=== PATIENT | male | born 1950 | race Caucasian/White ===

== ENCOUNTER 2018-04-27 15:30 | Inpatient (IN) | payer OTHER, MEDICARE ==
[~2018-04-27] VITALS: Ht 177.8 cm; Wt 152.7 kg
[2018-04-27 15:58] LABS: BASOPHILS ABSOLUTE AUTO 0.04 K/mm3 (0.00-0.23); BASOPHILS PERCENT AUTO 0 % (0-2); EOSINOPHILS ABSOLUTE AUTO 0.02 K/mm3 (0.00-0.68); EOSINOPHILS PERCENT AUTO 0 % (0-6); Hematocrit 37.2 % (37.0-53.0); IMMATURE GRAN ABSOLUTE AUTO 0.09 K/mm3 (0.00-0.10); IMMATURE GRAN PERCENT AUTO 1 % (0-1); LYMPHOCYTES PERCENT AUTO 2 % (21-46); MONOCYTES ABSOLUTE AUTO 1.01 K/mm3 (0.16-1.47); MONOCYTES PERCENT AUTO 5 % (4-13); Mean Corpuscular HGB 30.2 pg (26.0-34.0); Mean Corpuscular HGB Conc 32.3 g/dL (31.5-36.5); Mean Corpuscular Volume 94 fL (80-100); Mean Platelet Volume 10.1 fL (9.1-12.4); NEUTROPHILS ABSOLUTE AUTO 17.89 K/mm3 (1.96-9.15); NEUTROPHILS PERCENT AUTO 92 % (41-73); Platelet Count 190 K/mm3 (150-400); RDW Coefficient Variation 13.6 % (11.7-14.2); RDW Standard Deviation 46.8 fL (35.1-46.3); Red Blood Cell Count 3.98 M/mm3 (4.30-5.90); White Blood Cell Count 19.35 K/mm3 (4.00-11.30)
[2018-04-27 16:00] LABS: PCO2 Arterial 39.6 mmHg (35-45); PO2 Arterial 69.7 mmHg (80-100); pH Blood Arterial 7.49 (7.35-7.45)
[2018-04-27 16:17] LABS: Alanine Aminotransfer (ALT/SGP 54 U/L (12-78); Albumin, Blood 3.7 g/dL (3.4-5.0); Albumin/Globulin Ratio 0.9 (0.8-1.8); Alk Phos 151 U/L (50-136); Anion Gap 12 mmol/L (6-16); Aspartate Aminotrans (AST/SGOT 49 U/L (12-37); Blood Urea Nitrogen 19 mg/dL (8-24); Bun/Creatinine Ratio 18.4 (12.0-20.0); CO2, Blood 28 mmol/L (21-32); Chloride, Blood 96 mmol/L (98-108); Creatinine, Blood 1.03 mg/dL (0.60-1.20); Glomerular Filtration Rate >60 (60-); Glucose, Blood 166 mg/dL (70-99); Potassium, Blood 4.7 mmol/L (3.5-5.5); Sodium, Blood 136 mmol/L (136-145); Total Protein, Blood 7.7 g/dL (6.4-8.2)
[2018-04-27] MEDS ORDERED: ALBU90OI INH (17:08)
[2018-04-27] MEDS ORDERED: **INCOMPLETE MED REC (17:08)
[2018-04-27] MEDS ORDERED: Zyloprim300 MG PO (17:10)
[2018-04-27] MEDS ORDERED: AMLO10 PO (17:11)
[2018-04-27] MEDS ORDERED: BUPR150ER PO (17:12)
[2018-04-27] MEDS ORDERED: CHLORHEXIDINE TOP (17:14)
[2018-04-27] MEDS ORDERED: CHLO25B PO (17:14)
[2018-04-27] MEDS ORDERED: CHOL10002 PO (17:14)
[2018-04-27] MEDS ORDERED: Ferrous Sulfat325 M2 PO (17:17)
[2018-04-27] MEDS ORDERED: GENTEAL TEARS 015 ML BOTHEYES (17:17)
[2018-04-27] MEDS ORDERED: FURO20 PO (17:18)
[2018-04-27] MEDS ORDERED: Fish Oil 10001000 MG PO (17:18)
[2018-04-27] MEDS ORDERED: GABA800 PO (17:19)
[2018-04-27] MEDS ORDERED: GEMF600 PO (17:19)
[2018-04-27] MEDS ORDERED: Glucose4 GM PO (17:20)
[2018-04-27] MEDS ORDERED: Novolog Fl100 UNIT/1 SC (17:21)
[2018-04-27] MEDS ORDERED: Norco 10-325 T1 EACH PO (17:21)
[2018-04-27] MEDS ORDERED: INSULANPEN SC (17:22)
[2018-04-27] MEDS ORDERED: LIOT25 PO (17:23)
[2018-04-27] MEDS ORDERED: Prinivil10 MG PO (17:23)
[2018-04-27] MEDS ORDERED: Mobic15 MG PO (17:24)
[2018-04-27] MEDS ORDERED: MAGOXI400 PO (17:24)
[2018-04-27] MEDS ORDERED: Metformin HCl500 MG PO (17:24)
[2018-04-27] MEDS ORDERED: MIRT15 PO (17:25)
[2018-04-27] MEDS ORDERED: METO25ER PO (17:25)
[2018-04-27] MEDS ORDERED: Omeprazole20 M1 PO (17:26)
[2018-04-27] MEDS ORDERED: Hair, Skin & N1 EACH PO (17:26)
[2018-04-27] MEDS ORDERED: K-Dur 20 meq T20 MEQ PO (17:27)
[2018-04-27] MEDS ORDERED: TRAZ100 PO (17:28)
[2018-04-27] MEDS ORDERED: TAMS.4ER PO (17:28)
[2018-04-27] MEDS ORDERED: SELENIUM SULFI120 ML TOP (17:31)
--- NOTE | 2018-04-27 18:45 | NUR ---
pt awaiting admit bed. Review of symptoms and needs. pt denies headaches has been having more pain if feet and state he has more sores on his feet. pt having dyspnea at rest. pt mobily obese sleeps in a recliner with his biapa. sleeping more. He is on high dose insulin. states he has been having more frequent low blood sugars in the am. no nausea no constipation or loose stools. moderate appetiete. he has not fell recently but has had falls the past ryear that resulted in a fractured ankle that is chronicaly painfull. [facility].. pt has a sore on right ankle that looks like pressure sore for socks. he also has a sore on top or left foot and a sore on left vides rom his brace. he has dry skin and edema. needs podiatry care inspected feet. he has opotential sore on left second toe. advised he needs carful foot care from urban renewal manager. pt does not see anyother care providers. he was on telehealth phone checks and took himself off. He wighs himself frequenty. pt states his will not let him change his code status and he is miserable. [facility] and advised we will help hm and his with a plan of care. pt high risk for sudden episode and increased hospitalizations kps score 50%.
[2018-04-27 22:12] LABS: Adenovirus Not Detected (NOT DETECT); Bordetella pertussis Not Detected (NOT DETECT); Chlamydophila pneumoniae Not Detected (NOT DETECT); Coronavirus 229E Not Detected (NOT DETECT); Coronavirus HKU1 Not Detected (NOT DETECT); Coronavirus NL63 Not Detected (NOT DETECT); Coronavirus OC43 Not Detected (NOT DETECT); Human Metapneumovirus Not Detected (NOT DETECT); Human Rhinovirus/Enterovirus Detected (NOT DETECT); Influenza A Not Detected (NOT DETECT); Influenza A/2009-H1 Not Detected (NOT DETECT); Influenza A/H1 Not Detected (NOT DETECT); Influenza A/H3 Not Detected (NOT DETECT); Influenza B Not Detected (NOT DETECT); Mycoplasma pneumoniae Not Detected (NOT DETECT); Parainfluenza Virus 1 Not Detected (NOT DETECT); Parainfluenza Virus 2 Not Detected (NOT DETECT); Parainfluenza Virus 3 Not Detected (NOT DETECT); Parainfluenza Virus 4 Not Detected (NOT DETECT); Respiratory Syncytial Virus Not Detected (NOT DETECT)
[2018-04-28 01:01] LABS: Hematocrit 30.1 % (37.0-53.0); Hemoglobin 9.8 g/dL (13.5-17.5); Mean Corpuscular HGB 31.3 pg (26.0-34.0); Mean Corpuscular HGB Conc 32.6 g/dL (31.5-36.5); Mean Corpuscular Volume 96 fL (80-100); Mean Platelet Volume 10.4 fL (9.1-12.4); Platelet Count 157 K/mm3 (150-400); Red Blood Cell Count 3.13 M/mm3 (4.30-5.90); White Blood Cell Count 24.31 K/mm3 (4.00-11.30)
[2018-04-28 01:17] LABS: Calcium, Blood 7.6 mg/dL (8.5-10.1); Creatinine, Blood 1.5 mg/dL (0.60-1.20); Potassium, Blood 5.2 mmol/L (3.5-5.5)
--- NOTE | 2018-04-28 04:36 | NUR ---
SHIFT SUMMARY: PATIENT ARRIVED TO [facility] AT APPROX 1930 VIA GURNEY FROM ED. PATIENT ADMISSION COMPLETED, AND PATIENT ORIENTED TO ROOM, CALL LIGHT AND HOSPITAL POLICIES. PATEINT LEFT FOOT HX OF FOOT DROP AND PATIENT WEAK=IMPAIRED GAIT. PATIENT PALE AND DIAPHORETIC. IV FLUIDS INFUSING AND MEDICATIONS GIVEN. -NEGATIVE FOR FLU LACTIC >4, INVENTORY MANAGEMENT SPECIALIST KAREN NOTIFIED, ORDERS RECIEVED, ARLEY JONES IN TO SEE PATIENT -MRSA SAMPLE COLLECTED -BLOOD GLUCOSE STABLE -SYSTOLIC BLOOD PRESSURES RANGING FROM LOW 90'S TO 105 AFTER 5L TOTAL IVF -NO URINE NOTED ON BLADDER SCAN AND NO URINE RECIEVED WITH I&O CATH, LUNG SOUNDS REMAIN UNCHANGED FROM INITIAL ASSESSMENT BUT ABDOMEN BECOMING MORE FIRM
[2018-04-28 11:04] LABS: Vancomycin, Random 11.3 ug/mL
[2018-04-28 12:09] LABS: Source, Urine Clean Catch
[2018-04-28 12:22] LABS: Bilirubin, Urine Neg (Neg); Blood, Urine Neg (Neg); Glucose Qualitative, Urine 3+ (Neg); Ketones, Urine 1+ (Neg); Leukocyte Esterase, Urine 1+ (Neg); Nitrite, Urine Neg (Neg); Protein, Urine Neg (Neg); Specific Gravity, Urine 1.015 (1.003-1.022); Urobilinogen, Urine NORM (Normal)
[2018-04-28 12:28] LABS: Appearance, Urine Clear (Clear); Color, Urine Yellow (P-Yellow)
[2018-04-28 12:40] LABS: Red Blood Cells, Urine Not Seen /hpf (0-2); Squamous Epithelial Cells Not Seen /hpf (Few)
--- NOTE | 2018-04-28 13:03 | NUR ---
[address] Teran regarding blood sugar 409 at lunchtime. new orders were received.
[2018-04-28 14:06] LABS: Bacteria Not Seen /hpf
--- NOTE | 2018-04-28 19:13 | NUR ---
SUMMARY The pt has improved throughout the shift with his breathing. Lung sounds are no longer wheezy as they were in the bases this morning, and less diminshed. The pt is no longer dyspneic at rest, and is able to ambulate into the bathroom to void. He has been voiding throughout the shift. Heart rate has remained stable and blood pressure as well. He states that he still feels "lousy" but that his breathing is better than this morning.
[2018-04-29 04:59] LABS: Anion Gap 7 mmol/L (6-16); Blood Urea Nitrogen 37 mg/dL (8-24); Bun/Creatinine Ratio 33.6 (12.0-20.0); CO2, Blood 29 mmol/L (21-32); Calcium, Blood 8.4 mg/dL (8.5-10.1); Chloride, Blood 98 mmol/L (98-108); Glomerular Filtration Rate >60 (60-); Glucose, Blood 310 mg/dL (70-99); Potassium, Blood 4.7 mmol/L (3.5-5.5); Sodium, Blood 134 mmol/L (136-145)
--- NOTE | 2018-04-29 06:14 | NUR ---
SHIFT SUMMARY: PATIENT HAD X2 EPISODES OF CONFUSION UPON WAKING THIS SHIFT, EASILY REORIENTED. PATIENT URINATING WELL, VSS, NO OTHER CHANGES, CALL LIGHT WITHIN REACH, PATIENT SLEEPING IN RECLINER.
[2018-04-29 09:06] LABS: Hemoglobin 10.4 g/dL (13.5-17.5); Mean Corpuscular HGB 30.6 pg (26.0-34.0); Mean Corpuscular HGB Conc 31.5 g/dL (31.5-36.5); Mean Corpuscular Volume 97 fL (80-100); Mean Platelet Volume 10.9 fL (9.1-12.4); Platelet Count 162 K/mm3 (150-400); RDW Coefficient Variation 14.1 % (11.7-14.2); RDW Standard Deviation 50.4 fL (35.1-46.3); White Blood Cell Count 15.93 K/mm3 (4.00-11.30)
--- NOTE | 2018-04-29 11:40 | NUR ---
Spoke with Dr. Teran regarding the positive blood cultures. He will also put in orders. Telephone order received for ruthie.
--- NOTE | 2018-04-29 15:00 | NUR ---
Telephone report given to Drew Cooper RN, at this time. Anticipate transfer of pt to room 330 soon.
--- NOTE | 2018-04-29 15:39 | NUR ---
TO ROOM AT 1535
--- NOTE | 2018-04-29 18:48 | NUR ---
PT PLEASANT SINCE TRANSFER. DID MEDICATE FOR PAIN THIS FATIMAH. SWOLLEN SCROTAL AREA. STATES IS FROM [place]. DR CANNOT FIX AT THIS TIME PER PT. NO OTHER CONCERNS AT THIS TIME. BED IN LOW POSITION, ACLL LITE IN REACH, CALLS APPROP. SITTING IN CHAIR AT THIS TIME.
--- NOTE | 2018-04-29 21:04 | NUR ---
CALLED [facility] TO [facility] PATIENT'S HOME DOSE OF LANTUS AT 220 UNITS AT HS. [facility] IS AL[facility] THIS INFORMATION TO US.
--- NOTE | 2018-04-29 21:53 | NUR ---
LANTUS DOSE PT TAKES 220 UNITS OF LANTUS AT BEDTIME. DISCUSSED WITH CHARGE RB RJ PLATA RN. SHE CALLED [facility] AND VERIFIED DOSE WITH STAFF. MEDICATION REC FROM [facility] WAS SENT AND REVIEWED, WHICH SHOWED THAT PT TOOK 220 UNITS OF LANTUS. ALSO CALLED PHARMACY AND VERIFIED DOSE WITH CAROL CARREON RN. IZZY MATSON CALLED AND NOTIFIED OF PT BG OF 223, AND HIGH DOSE OF INSULIN AT 220. HE STATES TO CONTINUE 220 UNITS DOSE AT BEDTIME, SINCE PT TAKES THAT AT HOME. SPOKE WITH PT REGARDING DOSE HE VERIFIED THAT IT WAS THE CORRECT DOSE, AND THAT HE HAS TAKEN THAT WAY FOR YEARS. HE SAYS HE TAKES IT EVEN WITH A BG OF 223. WILL MONITOR. PT TO HAVE A SANDWHICH BEFORE BED.
--- NOTE | 2018-04-30 05:13 | NUR ---
SHIFT SUMMARY NO ACUTE CHANGES TO REPORT OVERNIGHT. PT WAS AWAKE FOR GOOD PORTION OF THE SHIFT, UP AND DOWN FROM HIS RECLINER TO USE THE BATHROOM. PT AMBULATES WELL WITH FWW. O2 IN PLACE T/O THE NIGHT. EDEMA TO BLE +2. PT MEDICATED X1 FOR BACK PAIN WHICH HE STATES PROVIDES RELIEF. ASSESSMENT UNCHANGED. WILL CONTINUE TO MONITOR AND REPORT TO ONCOMING RN.
[2018-04-30 05:37] LABS: Anion Gap 9 mmol/L (6-16); Blood Urea Nitrogen 32 mg/dL (8-24); Bun/Creatinine Ratio 25.8 (12.0-20.0); CO2, Blood 31 mmol/L (21-32); Calcium, Blood 8.9 mg/dL (8.5-10.1); Chloride, Blood 99 mmol/L (98-108); Creatinine, Blood 1.24 mg/dL (0.60-1.20); Glomerular Filtration Rate >60 (60-); Glucose, Blood 276 mg/dL (70-99); Sodium, Blood 139 mmol/L (136-145)
[2018-04-30] MEDS ORDERED: CHOL10002 PO (10:37)
[2018-04-30] MEDS ORDERED: TORSE20 PO (10:38)
[2018-05-05 07:16] LABS: F001-IGE EGG WHITE <0.10 kU/L (Class 0); F002-IGE MILK <0.10 kU/L (Class 0); F003-IGE CODFISH <0.10 kU/L (Class 0); F004-IGE WHEAT <0.10 kU/L (Class 0); F013-IGE PEANUT <0.10 kU/L (Class 0); F014-IGE SOYBEAN <0.10 kU/L (Class 0); F017-IGE HAZELNUT (FILBERT) <0.10 kU/L (Class 0); F040-IGE TUNA <0.10 kU/L (Class 0); F256-IGE WALNUT <0.10 kU/L (Class 0)
== END 2018-04-30 11:52 | disposition home or self-care (01) | DRG 871 ==
LOC: ER 15:30 → PCU 17:18 → MEDS 04-29 15:29 → ENPENDDIS 04-30 09:52 → MEDS 04-30 11:52
PROVIDERS: Emergency Medicine; Internal Medicine; Nurse Practitioner Acute Care; Pharmacist; ADMIT Internal Medicine
DX: A41.9 Sepsis, unspecified organism (principal); R65.21 Severe sepsis with septic shock; J96.21 Acute and chronic respiratory failure with hypoxia; I50.33 Acute on chronic diastolic (congestive) heart failure; J44.0 Chronic obstructive pulmonary disease with (acute) lower respiratory infection; J44.1 Chronic obstructive pulmonary disease with (acute) exacerbation; N17.9 Acute kidney failure, unspecified; E87.2 Acidosis; Z68.42 Body mass index [BMI] 45.0-49.9, adult; J20.6 Acute bronchitis due to rhinovirus; G47.33 Obstructive sleep apnea (adult) (pediatric); I11.0 Hypertensive heart disease with heart failure; Z99.81 Dependence on supplemental oxygen; E11.65 Type 2 diabetes mellitus with hyperglycemia; T38.0X5A Adverse effect of glucocorticoids and synthetic analogues, initial encounter; E78.5 Hyperlipidemia, unspecified; E66.01 Morbid (severe) obesity due to excess calories; D50.9 Iron deficiency anemia, unspecified; M10.9 Gout, unspecified; Z87.891 Personal history of nicotine dependence; Z79.4 Long term (current) use of insulin
CPT/HCPCS: 36415; 36600; 51701; 71046; 80048; 80053; 80202; 81001; 82803; 82947; 83036; 83605; 83735; 83880; 84145; 85025; 85027; 86003; 87040; 87086; 87449; 87486; 87581; 87633; 87798; 93005; 93010; 93306; 94640; 94760; 94762; 96365; 96366; 96367; 96368; 99285-25; J0456; J0696; J1650; J1815; J1940; J2543; J2930; J3370; J3475; J7030; J7050; J7120

== ENCOUNTER 2022-01-15 09:16 | Day surgery (SDC) | payer OTHER ==
[~2022-01-15] VITALS: Ht 177.8 cm; Wt 118.9 kg
[~2022-01-15 09:16] MED LIST: **INCOMPLETE MED REC; ALBU90OI INH; AMLO10 PO; ASPI81CH PO; BUPR150ER PO; CHLO25B PO; CHLORHEXIDINE TOP; CHOL10002 PO; FURO20 PO; Ferrous Sulfat325 M2 PO; Fish Oil 10001000 MG PO; GABA800 PO; GEMF600 PO; GENTEAL TEARS 015 ML BOTHEYES; Glucose4 GM PO; Hair, Skin & N1 EACH PO; INSULANPEN SC; K-Dur 20 meq T20 MEQ PO; LIOT25 PO; MAGOXI400 PO; METF500C PO; METO25ER PO; MIRT15 PO; Mobic15 MG PO; Norco 10-325 T1 EACH PO; Novolog Fl100 UNIT/1 SC; Omeprazole20 M1 PO; Prinivil10 MG PO; SELENIUM SULFI120 ML TOP; TAMS.4ER PO; TORSE20 PO; TRAZ100 PO; Voltaren100 GM TOP; Zyloprim300 MG PO
--- NOTE | 2022-01-15 10:43 | NUR ---
History, Chart, Medications and Allergies reviewed before start of procedure. Pre-Op teaching done. Pt verbalizes understanding. Lungs clear T/O to Auscultation. Into Day Surgery via own electric wheelchair.
--- NOTE | 2022-01-15 11:34 | NUR ---
[address] GAGE REGARDING PT'S BLOOD SUGAR HAS DROPPED FROM FIRST INITIAL BLOOD SUGAR CHECK. CBG 107 TO 84 IN 50 MINS. NEW ORDER TO START D5NS IVF'S AND GIVE 500CC BOLUS AND CHECK BLOOD SUGAR BEFORE GOING BACK TO OR. IVF'S STARTED AT 1117.
--- NOTE | 2022-01-15 11:51 | NUR ---
1144 RECHECKED BLOOD SUGAR 110. INFORMED DR GAGE. OK TO PROCEED TO OR FOR SURGERY.
--- NOTE | 2022-01-15 16:30 | NUR ---
Discharge instructions reviewed with patient. Patient verbalizes understanding. Copy given to patient to take home. Dressing to procedure site clean, dry, intact with no visible drainage, swelling, erythema or bruising noted. Patient States Post-Procedure ride home has been arranged. Discharged via wheelchair to private car for ride home. PT NEEDED 2 STAFF ASSIST TO HOME WHEELCHAIR. PT STATES PAIN IS AT A TOLERABLE LEVEL. ABD BINDER AND SCROTAL SUPPORT IN PLACE. PT MOBILITY BACK TO BASE LINE. PT RECEIVED 2 NORCOS.
--- NOTE | 2022-01-19 10:10 | NUR ---
01/19/22 1010 Michelle Menchaca VERIFICATIONS: EDIT CHART.
== END 2022-01-15 23:28 | disposition home or self-care (01) ==
LOC: ORSCMMR 09:16 → ORD 11:00 → ORSCMMR 11:00
PROVIDERS: Surgery
PROC: 0WQF0ZZ Repair Abdominal Wall, Open Approach (ICD-10-PCS; principal; 2022-01-15 11:00)
PROC: 8E0W4CZ Robotic Assisted Procedure of Trunk Region, Percutaneous Endoscopic Approach (ICD-10-PCS; principal; 2022-01-15 11:00)
PROC: 0YUA4JZ Supplement Bilateral Inguinal Region with Synthetic Substitute, Percutaneous Endoscopic Approach (ICD-10-PCS; principal; 2022-01-15 11:00)
DX: K40.20 Bilateral inguinal hernia, without obstruction or gangrene, not specified as recurrent (principal); K42.9 Umbilical hernia without obstruction or gangrene; D17.6 Benign lipomatous neoplasm of spermatic cord; I12.9 Hypertensive chronic kidney disease with stage 1 through stage 4 chronic kidney disease, or unspecified chronic kidney disease; E11.22 Type 2 diabetes mellitus with diabetic chronic kidney disease; N18.9 Chronic kidney disease, unspecified; Z79.4 Long term (current) use of insulin; J44.9 Chronic obstructive pulmonary disease, unspecified; Z87.891 Personal history of nicotine dependence; G47.33 Obstructive sleep apnea (adult) (pediatric); Z79.899 Other long term (current) drug therapy; E66.9 Obesity, unspecified; Z68.37 Body mass index [BMI] 37.0-37.9, adult
CPT/HCPCS: 49650; 49585; S2900; 82947; A9270; C1781; J0690; J1100; J2250; J2405; J2704; J2795; J3010; J7042; J7120